=== PATIENT | male | born 1950 | race Caucasian/White ===

== ENCOUNTER 2017-05-21 10:25 | Emergency (ER) | payer MEDICARE, BC ==
[2017-05-21] MEDS ORDERED: Ondansetron 4 MG/2 ML SDV IVPUSH ONE (10:35)
[2017-05-21] MEDS ORDERED: HYDROmorphone 1 MG/ML Syringe IVPUSH ONE ×2 (10:35→11:06)
[2017-05-21] MEDS ORDERED: Sodium Chloride 0.9% 1,000 ML IV SCH ×2 (10:45→12:30)
[2017-05-21 12:47] VITALS: BP 115/53
[2017-05-21] MEDS ORDERED: Tamsulosin 0.4 MG Cap.ER PO ONE (13:22)
[2017-05-21] MEDS ORDERED: Ketorolac 30 MG/ML SDV IVPUSH ONE (13:23)
--- NOTE | 2017-05-21 13:23 | CT ---
Abdomen pelvis CT. History: Right flank pain. Technique: Unenhanced axial images were obtained from the lung bases extending through the abdomen an d pelvis. Coronal images were reconstructed. Total DLP: 715. Comparison: None Findings: There is mild hydronephrosis of the right kidney. There is mild hydroureter. There is an ob structing 3 mm stone at the right UVJ. There is a punctate stone in the midpole left kidney. Left kid sarah demonstrates no hydronephrosis. There is a 2 cm cyst of the superior pole right kidney. The liver, gallbladder, pancreas, and spleen are unremarkable. There is no large or small bowel diste ntion. There are scattered colonic diverticula. There are no inflammatory changes. There are no skele megan lesions. Impression: 1. Mild hydronephrosis and hydroureter on the right secondary to a 3 mm right UVJ stone.
--- NOTE | 2017-05-21 13:26 | EDM.PDOC ---
ED HPI GENERAL MEDICAL PROBLEM - General Chief Complaint: Flank Pain Stated Complaint: KIDNEY STONE Time Seen by Provider: 05/21/17 10:40 Source of Information: Reports: Patient, Family History Limitations: Reports: No Limitations - History of Present Illness INITIAL COMMENTS - FREE TEXT/NARRATIVE: pt arrived with severe rt sided flank pain. He states this started suddnly this am. He has a past history of kidney stone. He was vomiting quite viloently.He did state that his pain did feel very much like his previous stone. Onset: Today, Sudden Duration: Hour(s): Location: Reports: Abdomen, Other (rt flank pain) Associated Symptoms: Reports: Nausea/Vomiting Right Flank Pain Score (Numeric/FACES): 1 - Related Data Allergies Allergy/AdvReac Type Severity Reaction Status Date / Time No Known Allergies Allergy Verified 05/21/17 10:40 Home Meds: Home Meds Aspirin [Halfprin] 81 mg PO DAILY 10/27/14 [History] Cholecalciferol (Vitamin D3) [Vitamin D3] 2,000 mg PO DAILY 10/27/14 [History] Citalopram Hydrobromide [Celexa] 20 mg PO DAILY 10/27/14 [History] Docusate Sodium [Dok] 100 mg PO BID 10/27/14 [History] Ranitidine [Zantac] 75 mg PO DAILY 10/27/14 [History] Zolpidem Tartrate 10 mg PO BEDTIME 10/27/14 [History] atorvaSTATin [Lipitor] 5 mg PO DAILY 10/27/14 [History] Magnesium 1 tab PO DAILY 05/21/17 [History] Past Medical History HEENT History: Reports: Impaired Vision Cardiovascular History: Reports: High Cholesterol, Pacemaker Other Cardiovascular History: hx palpitations Gastrointestinal History: Reports: Bowel Obstruction Other Gastrointestinal History: bowel blockage Genitourinary History: Reports: Renal Calculus Musculoskeletal History: Reports: Fracture Other Musculoskeletal History: L arm - Past Surgical History Other Cardiovascular Surgeries/Procedures: Pacemacker placed 10/28/14 GI Surgical History: Reports: Appendectomy, Colonoscopy, Hernia Repair/Other Social & Family History - Tobacco Use Smoking Status *Q: Never Smoker Second Hand Smoke Exposure: No - Alcohol Use Days Per Week of Alcohol Use: 1 Number of Drinks Per Day: 0 Total Drinks Per Week: 0 - Recreational Drug Use Recreational Drug Use: No - Living Situation & Occupation Living situation: Reports: , with Spouse Occupation: Employed ED ROS GENERAL - Review of Systems Review Of Systems: See Below Constitutional: Reports: No Symptoms HEENT: Reports: No Symptoms Respiratory: Reports: No Symptoms Cardiovascular: Reports: No Symptoms Endocrine: Reports: No Symptoms GI/Abdominal: Reports: Abdominal Pain, Other (pt has severe rt flank pain. ) : Reports: Flank Pain Musculoskeletal: Reports: No Symptoms Skin: Reports: No Symptoms ED EXAM, RENAL/ - Physical Exam Exam: See Below Text/Narrative:: pt arrived severe rt sided flank pain. Exam Limited By: No Limitations General Appearance: Alert, Anxious, Severe Distress Ears: Normal TMs Nose: Normal Inspection Throat/Mouth: Normal Inspection Head: Atraumatic Neck: Normal Inspection Respiratory/Chest: No Respiratory Distress Cardiovascular: Regular Rate, Rhythm GI/Abdominal: Soft, Other ( tender in the rt flank area. ) (Male) Exam: Deferred Rectal (Males) Exam: Deferred Back Exam: Other ( flank pain) Extremities: Normal Inspection Neurological: Alert, Oriented, Normal Cognition Psychiatric: Normal Affect Course - Vital Signs Last Recorded V/S: Last Vital Signs Temp 36.3 C 05/21/17 10:38 Pulse 72 05/21/17 12:42 Resp 14 05/21/17 12:42 BP 115/53 L 05/21/17 12:42 Pulse Ox 96 05/21/17 12:42 - Orders/Labs/Meds Orders: Active Orders 24 hr Category Date Time Status Sodium Chloride 0.9% [Normal Saline] 1,000 ml Med 05/21/17 10:45 Active IV ASDIRECTED Sodium Chloride 0.9% [Normal Saline] 1,000 ml Med 05/21/17 12:30 Active IV ASDIRECTED Medication Orders Sodium Chloride (Normal Saline) 1,000 mls @ 999 mls/hr IV ASDIRECTED JOSE Last Admin: 05/21/17 10:48 Dose: 999 mls/hr Sodium Chloride (Normal Saline) 1,000 mls @ 999 mls/hr IV ASDIRECTED JOSE Last Admin: 05/21/17 12:40 Dose: 999 mls/hr Labs: Laboratory Tests 05/21/17 05/21/17 05/21/17 Range/Units 10:40 10:40 11:45 WBC 15.1 H (4.5-11.0) K/uL RBC 5.16 (4.30-5.90) M/uL Hgb 15.2 H (12.0-15.0) g/dL Hct 45.6 (40.0-54.0) % MCV 88 (80-98) fL MCH 30 (27-31) pg MCHC 33 (32-36) % Plt Count 231 (150-400) K/uL Neut % (Auto) 87 H (36-66) % Lymph % (Auto) 8 L (24-44) % [place] % (Auto) 4 (2-6) % Eos % (Auto) 0 L (2-4) % Baso % (Auto) 0 (0-1) % Sodium 142 (140-148) mmol/L Potassium 3.5 L (3.6-5.2) mmol/L Chloride 106 (100-108) mmol/L Carbon Dioxide 23 (21-32) mmol/L Anion Gap 16.5 H (5.0-14.0) mmol/L BUN 15 (7-18) mg/dL Creatinine 1.1 (0.8-1.3) mg/dL Est Cr Clr Drug Dosing TNP Estimated GFR (MDRD) > 60 (>60) Glucose 141 H (74-106) mg/dL Calcium 8.9 (8.5-10.1) mg/dL Total Bilirubin 0.7 D (0.2-1.0) mg/dL AST 21 (15-37) U/L ALT 26 D (12-78) U/L Alkaline Phosphatase 54 (46-116) U/L Total Protein 7.0 (6.4-8.2) g/dL Albumin 3.7 (3.4-5.0) g/dL Globulin 3.3 (2.3-3.5) g/dL Albumin/Globulin Ratio 1.1 L (1.2-2.2) Urine Color Yellow Urine Appearance Slightly cloudy Urine pH 5.0 (4.5-8.0) Ur Specific [place] 1.020 (1.008-1.030) Urine Protein Negative (NEGATIVE) mg/dL Urine Glucose (UA) Normal (NEGATIVE) mg/dL Urine Ketones Negative (NEGATIVE) mg/dL Urine Occult Blood Large (NEGATIVE) Urine Nitrite Negative (NEGAITVE) Urine Bilirubin Small (NEGATIVE) Urine Urobilinogen 1 (NORMAL) mg/dL Ur Leukocyte Esterase Negative (NEGATIVE) Urine RBC 10-20 H (0-5) Urine WBC 0-5 (0-5) Ur Epithelial Cells Rare Amorphous Sediment Not seen Urine Bacteria Few Urine Mucus Moderate Meds: Medications Generic Name Dose Route Start Last Admin Trade Name Joshua PRN Reason Stop Dose Admin Sodium Chloride 1,000 mls @ 999 mls/hr 05/21/17 10:45 05/21/17 10:48 Normal Saline IV 999 mls/hr ASDIRECTED JOSE Administration Sodium Chloride 1,000 mls @ 999 mls/hr 05/21/17 12:30 05/21/17 12:40 Normal Saline IV 999 mls/hr ASDIRECTED JOSE Administration Discontinued Medications Generic Name Dose Route Start Last Admin Trade Name Joshua PRN Reason Stop Dose Admin Hydromorphone HCl 1 mg 05/21/17 10:35 05/21/17 10:45 Dilaudid IVPUSH 05/21/17 10:36 1 mg ONETIME ONE Administration Hydromorphone HCl 1 mg 05/21/17 11:06 05/21/17 11:21 Dilaudid IVPUSH 05/21/17 11:07 1 mg ONETIME ONE Administration Ketorolac Tromethamine 30 mg 05/21/17 13:23 Toradol IVPUSH 05/21/17 13:24 ONETIME ONE Ondansetron HCl 4 mg 05/21/17 10:35 05/21/17 10:44 Zofran IVPUSH 05/21/17 10:36 4 mg ONETIME ONE Administration Tamsulosin HCl 0.4 mg 05/21/17 13:22 Flomax PO 05/21/17 13:23 ONETIME ONE - Re-Assessments/Exams Free Text/Narrative Re-Assessment/Exam: 05/21/17 13:36 pt had rbcs in his urine. His wbc is elevated. He had a cat scan of the abdoman without contrast that shows a 3 mm stone just outside of the bladder on the rt. Departure - Departure Time of Disposition: 13:24 Disposition: Home, Self-Care 01 Condition: Fair Clinical Impression: Ureteral calculus, right - Discharge Information Referrals: Steven Pastrana Sr, MD [Primary Care Provider] - Forms: ED Department Discharge Care Plan Goals: push fluids, flomax .4 1 tab daily, strain all urine, torodol 10mg qid as needed for pain, percocet 5/325 q6h prn for pain # 10 - My Orders Last 24 Hours: My Active Orders 05/21/17 10:45 Sodium Chloride 0.9% [Normal Saline] 1,000 ml IV ASDIRECTED 05/21/17 12:30 Sodium Chloride 0.9% [Normal Saline] 1,000 ml IV ASDIRECTED - Assessment/Plan Last 24 Hours: My Active Orders 05/21/17 10:45 Sodium Chloride 0.9% [Normal Saline] 1,000 ml IV ASDIRECTED 05/21/17 12:30 Sodium Chloride 0.9% [Normal Saline] 1,000 ml IV ASDIRECTED
== END 2017-05-21 13:56 | disposition home or self-care (01) ==
LOC: JP.ED 10:25
DX: N13.2 Hydronephrosis with renal and ureteral calculous obstruction (principal); E78.00 Pure hypercholesterolemia, unspecified; Z79.82 Long term (current) use of aspirin; Z79.899 Other long term (current) drug therapy
CPT/HCPCS: 36415; 74176; 80053; 81001; 85025; 96361; 96374; 96375; 96376; 99284; A9270; J1170; J1885; J2405; J7040

== ENCOUNTER 2019-07-16 00:17 | Emergency (ER) | payer MEDICARE, BC ==
[2019-07-16 00:40] VITALS: BP 157/72; PULSE 84
[2019-07-16] MEDS ORDERED: Dexamethasone 4 MG/ML SDV PO ONE (01:16)
--- NOTE | 2019-07-16 01:21 | EDM.PDOC ---
ED HPI GENERAL MEDICAL PROBLEM - General Chief Complaint: ENT Problem Stated Complaint: SORE THROAT Time Seen by Provider: 07/16/19 01:11 Source of Information: Reports: Patient, RN Notes Reviewed History Limitations: Reports: No Limitations - History of Present Illness INITIAL COMMENTS - FREE TEXT/NARRATIVE: 69-year-old gentleman presents emergency department a complaint of sore throat, he states his sore throat for about 10 days no nausea vomiting no cough no fever he states it is progressively gotten worse and complains of pain with swallowing throat Pain Score (Numeric/FACES): 5 - Related Data Allergies Allergy/AdvReac Type Severity Reaction Status Date / Time diltiazem Allergy Depression Verified 07/16/19 00:33 naproxen Allergy Headache Verified 07/16/19 00:33 tramadol Allergy Dizziness Verified 07/16/19 00:33 Home Meds: Home Meds Aspirin [Halfprin] 81 mg PO DAILY 10/27/14 [History] Cholecalciferol (Vitamin D3) [Vitamin D3] 2,000 mg PO DAILY 10/27/14 [History] Citalopram Hydrobromide [Celexa] 20 mg PO DAILY 10/27/14 [History] Docusate Sodium [Dok] 100 mg PO ASDIRECTED PRN 10/27/14 [History] Zolpidem Tartrate 10 mg PO BEDTIME PRN 10/27/14 [History] atorvaSTATin [Lipitor] 5 mg PO DAILY 10/27/14 [History] Magnesium 250 mg PO DAILY PRN 05/21/17 [History] Famotidine 20 mg PO ASDIRECTED PRN 07/16/19 [History] Past Medical History HEENT History: Reports: Impaired Vision Cardiovascular History: Reports: High Cholesterol, Pacemaker, Other (See Below) Other Cardiovascular History: hx palpitations. 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 heart burn Genitourinary History: Reports: Renal Calculus Musculoskeletal History: Reports: Fracture Other Musculoskeletal History: L arm Psychiatric History: Reports: Depression Hematologic History: Reports: Anticoagulation Therapy, Other (See Below) Other Hematologic History: pt takes 81mg asa - Infectious Disease History Infectious Disease History: Reports: Chicken Pox, Measles, Mumps - Past Surgical History Cardiovascular Surgical History: Reports: Other (See Below) Other Cardiovascular Surgeries/Procedures: Pacemacker placed 10/28/14 GI Surgical History: Reports: Appendectomy, Colonoscopy, Hernia Repair/Other Social & Family History - Tobacco Use Smoking Status *Q: Never Smoker - Caffeine Use Caffeine Use: Reports: Coffee - Recreational Drug Use Recreational Drug Use: No - Living Situation & Occupation Living situation: Reports: , with Spouse Occupation: Employed ED ROS ENT - Review of Systems Review Of Systems: See Below Constitutional: Reports: No Symptoms HEENT: Reports: Throat Pain, Throat Swelling Respiratory: Reports: No Symptoms Cardiovascular: Reports: No Symptoms GI/Abdominal: Reports: No Symptoms ED EXAM, ENT - Physical Exam Exam: See Below Exam Limited By: No Limitations General Appearance: Alert, WD/WN, No Apparent Distress Eye Exam: Bilateral Eye: Normal Inspection Ears: Normal External Exam, Normal Canal, Hearing Grossly Normal, Normal TMs Nose: Normal Inspection, Normal Mucousa, No Blood Mouth/Throat: Normal Inspection, Normal Gums, Normal Lips, Pharyngeal Erythema, Tonsillar Exudates, Tonsillar Swelling Head: Atraumatic, Normocephalic Neck: Normal Inspection, Supple, Non-Tender, Full Range of Motion Respiratory/Chest: No Respiratory Distress, Lungs Clear, Normal Breath Sounds, No Accessory Muscle Use, Chest Non-Tender Cardiovascular: Regular Rate, Rhythm, No Murmur Course - Vital Signs Last Recorded V/S: Last Vital Signs Temp 97.7 F 07/16/19 00:40 Pulse 84 07/16/19 00:40 Resp 15 07/16/19 00:40 BP 157/72 H 07/16/19 00:40 Pulse Ox 94 L 07/16/19 00:40 - Orders/Labs/Meds Orders: Active Orders 24 hr Category Date Time Status CULTURE STREP A CONFIRMATION [RM] Stat Lab 07/16/19 00:47 Results STREP SCRN A RAPID W CULT CONF [RM] Stat Lab 07/16/19 00:47 Results dexAMETHasone [Dexamethasone] Med 07/16/19 01:16 Once 8 mg PO ONETIME ONE Medication Orders Dexamethasone (Dexamethasone) 8 mg PO ONETIME ONE Stop: 07/16/19 01:17 Meds: Medications Generic Name Dose Route Start Last Admin Trade Name Freq PRN Reason Stop Dose Admin Dexamethasone 8 mg 07/16/19 01:16 Dexamethasone PO 07/16/19 01:17 ONETIME ONE Departure - Departure Time of Disposition: :20 Disposition: Home, Self-Care 01 Condition: Fair Clinical Impression: Exudative pharyngitis - Discharge Information Instructions: Pharyngitis, [id number] Referrals: Carole Alejo MD [Primary Care Provider] - Additional Instructions: Take full course of antibiotics, please followup with your primary care provider in 3-5 days if not better, please call return to the emergency department with worsening of symptoms. Sepsis Event Note - Evaluation Sepsis Screening Result: No Definite Risk - Focused Exam Vital Signs: Vital Signs Temp Pulse Resp BP Pulse Ox 07/16/19 00:40 97.7 F 84 15 157/72 H 94 L 07/16/19 00:38 97.7 F 84 15 157/72 H 94 L Date Exam was Performed: 07/16/19 Time Exam was Performed: 01:17 - My Orders Last 24 Hours: My Active Orders 07/16/19 00:47 CULTURE STREP A CONFIRMATION [RM] Stat STREP SCRN A RAPID W CULT CONF [RM] Stat 07/16/19 01:16 dexAMETHasone [Dexamethasone] 8 mg PO ONETIME ONE - Assessment/Plan Last 24 Hours: My Active Orders 07/16/19 00:47 CULTURE STREP A CONFIRMATION [RM] Stat STREP SCRN A RAPID W CULT CONF [RM] Stat 07/16/19 01:16 dexAMETHasone [Dexamethasone] 8 mg PO ONETIME ONE Plan: Assessment Acuity = acute Site and laterality = exudative pharyngitis Etiology = suspicious for bacterial cause Manifestations = none Location of injury = Home Lab values = rapid strep is negative culture is pending Plan Because he has been ill for 10 days elected to treat empirically azithromycin 5- day course, also dexamethasone elixir 8 mg x 1 follow-up primary care in 3 to 5 days if not better This note was dictated using [employer] voice recognition software please call with any questions on syntax or grammar.
== END 2019-07-16 01:31 | disposition home or self-care (01) ==
LOC: JP.ED 00:17
DX: J02.9 Acute pharyngitis, unspecified (principal); E78.00 Pure hypercholesterolemia, unspecified; F32.9 Major depressive disorder, single episode, unspecified; Z79.01 Long term (current) use of anticoagulants; Z79.82 Long term (current) use of aspirin; Z79.899 Other long term (current) drug therapy; Z88.8 Allergy status to other drugs, medicaments and biological substances; Z88.5 Allergy status to narcotic agent
CPT/HCPCS: 87081; 87880; 99283; J1100

== ENCOUNTER 2024-12-28 13:16 | Emergency (ER) | payer OTHER, MEDICARE, BC ==
[2024-12-28 14:16] LABS: BASOPHILS ABSOLUTE AUTO 0.08 K/uL (0.00-0.10); BASOPHILS PERCENT AUTO 0.8 % (0.1-1.3); EOSINOPHILS ABSOLUTE AUTO 0.23 K/uL (0.00-0.40); EOSINOPHILS PERCENT AUTO 2.2 % (0.0-5.4); IMMATURE GRAN ABSOLUTE AUTO 0.06 K/uL (0.00-0.23); IMMATURE GRAN PERCENT AUTO 0.6 % (0.0-0.7); LYMPHOCYTES ABSOLUTE AUTO 1.31 K/uL (0.8-3.3); LYMPHOCYTES PERCENT AUTO 12.7 % (11.4-47.7); MONOCYTES ABSOLUTE AUTO 1.26 K/uL (0.20-0.90); MONOCYTES PERCENT AUTO 12.3 % (3.3-12.6); NEUTROPHILS ABSOLUTE AUTO 7.34 K/uL (1.0-7.6); NEUTROPHILS PERCENT AUTO 71.4 % (40.0-78.1); PLATELET COUNT,PLT 212 K/uL (130-375); RED BLOOD CELL COUNT 4.27 M/uL (4.14-5.76); WHITE BLOOD CELL COUNT,WBC 10.3 K/uL (3.2-11.0)
[2024-12-28 14:36] LABS: APPEARANCE,URINE CLOUDY (CLEAR); GLUCOSE,URINE NEGATIVE (NEGATIVE); OCCULT BLOOD,URINE NEGATIVE (NEGATIVE)
[2024-12-28 14:39] VITALS: BP 126/67; PULSE 68
[2024-12-28 14:43] LABS: A/G RATIO 0.7 (1.2-2.2); ALANINE AMINOTRANSFERASE,ALT 45 U/L (12-78); ASPARTATE AMNIOTRANSFERASE,AST 28 U/L (15-37); BILIRUBIN TOTAL 0.5 mg/dL (0.2-1.0); BLOOD UREA NITROGEN,BUN 13 mg/dL (7-18); CARBON DIOXIDE,CO2 27 mmol/L (21-32); CHLORIDE,CL 103 mmol/L (100-108); CREATININE 0.7 mg/dL (0.8-1.3); EST CRCL DRUG DOSING (CG) 92.29 mL/min; ESTIMATED GFR 98 mL/min (>60); GLUCOSE RANDOM 107 mg/dL (74-106); POTASSIUM,K 3.7 mmol/L (3.6-5.2); PROTEIN TOTAL,TP 7.1 g/dL (6.4-8.2); SODIUM,NA 138 mmol/L (140-148); TROPONIN I HIGH SENSITIVITY 7.7 pg/mL (<=60.3)
== END 2024-12-28 15:41 | disposition home or self-care (01) ==
LOC: JP.ED 13:16
DX: R41.0 Disorientation, unspecified (principal); R00.2 Palpitations; E78.00 Pure hypercholesterolemia, unspecified; E03.9 Hypothyroidism, unspecified; Z88.8 Allergy status to other drugs, medicaments and biological substances; Z79.82 Long term (current) use of aspirin; Z79.890 Hormone replacement therapy; Z79.899 Other long term (current) drug therapy; Z90.49 Acquired absence of other specified parts of digestive tract
CPT/HCPCS: 36415; 80053; 81003; 84439; 84484; 85025; 99285